=== PATIENT | female | born 1990 | race Caucasian/White ===

== ENCOUNTER 2017-03-16 05:32 | Day surgery (SDC) | payer BC ==
[2017-03-16] MEDS ORDERED: LR 1,000 ML IV ONE (05:55)
[2017-03-16] MEDS ORDERED: LIDOCAINE 1% 2 ML INJ ID PRN (05:55)
[2017-03-16] MEDS ORDERED: LIDOCAINE 1% 2 ML INJ ONE (06:01)
--- NOTE | 2017-03-16 06:42 | PDGENHP ---
History and Physical - Chief Complaint RIGHT HIP PAIN - History of Present Illness 1. ~~~Bilateral~Borderline Hip Dyplasia (predominanatly anterior) with~ resultant labral tear, Right side more symptomatic 2. ~~S/P Right femoral and tibial derotational osteotomies (Oct, 2015) with HWR 3. ~~Bilateral~Femoroacetabular impingement (GABBI) Cam type 4. ~~Right~Greater Trochanteric Bursitis 5. Mild hyperlaxity HISTORY OF PRESENT ILLNESS: Sergeyis a 26 y.o.~~~active female~who I have had the pleasure to consult on today.~I have enjoyed meeting her. She~lives in [place], [place]. 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 ~She~is single; she~has no~children. ~Sergeywas an athlete and she was competitetive in [employer] and cycling but she is not active now. Brigette's bilateral~hip pain started in 2010 on the right and 4 months ago on the left, with no~recalled trauma or injury, and with no~previous complaints. ~Sergeyhas~a known history of hip dysplasia. She has had derotational osteotomy of right femur by Dr. Varela followed by tibial osteotomy by Dr. Garcia in Oct, 2015 in [place]. She did not get any pain relief from the surgeries. Presentation today is of~anterior, lateral, groin bilateral~hip pain (R>L). ~ The hip does~wake her~at night and does~click and catch on her. Sitting can be uncomfortable~for her. Sergeydoes~report suffering from lower back pain episodes. Sergeyhas~participated in physical therapy and has~tried other conservative measures including hip injections. She has had US guided right hip cortisone injection and GT injection on 12/01/2016 and intra articular injection did not give her any pain relief. ~She~has not~received sufficient symptomatic improvement. Sergeyhas not~utilized medication for pain management, including NSAID and OTC acetaminophen. Sergeyunderstands that she~has a hip and pelvis problem which should be researched and wishes to get a better understanding of her~hip status, followed by an establishment of a treatment strategy, hoping she~would be able to get back to her~well being active life. History: Past medical history: ~ Hyperthyroidism Relevant familial history: None which is relevant Past surgical history: No. Surgery Anesthesia Year Outcome 1 Vocal cord surgery GA 2012 Not good 2 Wrist surgery GA 2015 Good 3 DFO GA 2016 Not Good Sergeydenies problematic issues with general anesthesia in the past. I have reviewed, verified and agree with the past medical, surgical, family and social history. Current Medications:~has a current medication list which includes the following prescription(s): methimazole, multivitamin with iron, and freestyle lite. ALLERGIES:~is allergic to ciprofloxacin. Objective: Physical Examination: Sergeyis 5~feet 6~inches tall and weighs~130~Lbs. Sergeyis AAO x3; she ~is well-nourished, in NAD. Skin is warm and dry. ~Breathing is non-labored. ~ CV with RRR by pulse. Abdomen is soft, NTND. Currently, she~walks with a normal~gait. Trendelenburg sign is negative~and proprioception~is normal, both~sides. She~presents~with moderate~signs of joint laxity.~Beightons Score: 5 She~is fit looking. ~~ Lower spine examination is negative~for sciatic or femoral nerve irritation with negative~SLR &~femoral stretch tests. Range of motion of the spine is normal~for flexion, extension, and rotations, with no~associated pain. Strength, Sensation and pulses are normal - bilaterally Ankles and knees exams are normal~and no~mal-alignment is evident. She~has~right~1.5~cm short leg length discrepancy. Thigh circumference is asymmetric~with low~muscle atrophy~on right~side. Surgical~scars on the thight and the leg on the right. Hip ROM (degrees): FL ER At 90~hip FL IR At 90~hip FL AB AD EX IR Neutral hip ER Neutral hip R 115 ~~~~~w pain 50 35~pain 40 10 10 45 20 L 115 45 40 45 5 10 50 25 Specific hip and pelvis tests: Quadrant LAURA Roll Add. Longus R +++ +++ Negative Negative L +++ +++ Negative Negative Glut. Med ITB Pos. Imp R Negative 4+/5 strength Negative 4+/5 strength Negative L Negative 5/5 strength Negative 5/5 strength Negative Squeeze test measured normal Bony Symphysis pubis is pain free~to touch while concentric activity of the rectus abdominis, does not~produce pain at its insertion. Ilio Psos specific tests are positive for pain during cycling for the right hip~ and remarkable for painful snap~(RIGHT SIDE) HF is pain free with good strength both hips. Anterior capsule tenderness BILATERAL Greater trochanteric burse is painful~on the right hip. Piriformis tests: FAIR is negative, with no~local signs of neuritis related to sciatic nerve. SIJs examination is normal~with normal~LAURA in relation and local tenderness. Hamstrings tests are negative~functional contraction and negative~tendinopathy both hips. On a daily basis, the following percentages reflect Brigette's overall total pain: Right Deep hip: 50% GT: 50% Left Deep hip: 100% Imaging: Radiology studies which I~have personally reviewed, analyzed and measured are below: XR: AP of the hip and pelvis: Performed in a satisfactory~technique Coccyx to pubic symphysis distance 0.35~cm. 0 degree upright 12/01/16 [place]~Lines are preserved. No~Pathological signs are seen in the Symphysis Pubis. No~Pathological signs are seen at the Ischial~tuberosity. ~ Specific measurements show: NSA~ LCE Sourcil~Angle Sharp's angle Lat. Cam Lat. Pincer C.Over~sign Head~Coverage % ATDmm R N 28 (25) 6 43 - - - N N L N 27 (26) 8 42 - - - N N Parenthesis numbers are for LCE of [place]. Pos. wall sign ISS NAD ~~Dysplasia Comments R Negative Negative 25~mm ++ L Negative Negative 24~mm ++ Sclerosis Sup. Lat. OA Cysts Joint Space-WBZ Joint Space-Medial R + Negative Negative 6.4~mm 4.4~mm L + Negative Negative 6.7~mm 4.6~mm X Table lateral: Anterior cam lesion (small)~is seen~on both hips. Alpha Angle: ~ Right 54~dergrees Left 56~degrees Right MRI~shows: Cartilage intact, mildly hypertrophic labrum (8.5mm) and cartilage, with GT bursitis (possibly artifact from nail/suture leftovers). CT (Before the DFO) Femoral antetorsion on the right 35 degrees and 30 degrees on the left. Lateral tibial torsion 41 degrees on the right and 37 degrees on the left. [place] acetabular version 32 degrees on the right and 28 on the left. 3D shows anterior cam lesion 2-4 o'clock. Impression and plan:Carmelita Rinconis a 26 y.o.~active female~suffering from symptomatic bilateral~hip pain due to Borderline Hip Dyplasia (lionel anteriorly) with~resultant labral tear, and ~Bilateral~Femoroacetabular impingement (GABBI) Cam type causing significant disability to her~and altering~her~sport and life activities. On the right, she has also have Greater Trochanteric Bursitis and she is S/P Right femoral and tibial derotational osteotomies (Oct, 2015) and HWR. Physical examination, imaging, and her~story correspond with the diagnosis mentioned above. I explained that hip dysplasia is a condition wherein the hip joint has excessive play~and instability due to a variety of factors, including the depth and adequacy of the socket, the orientation of the femur bone, and ligament laxity around the hip joint. Dysplasia ranges in severity from borderline to lionel, with treatment options being specific to the specific nature of the problem. Left untreated, the instability in the hip joint can cause progressive tearing of the labrum and deterioration of the surface cartilage, ultimately resulting in progressive osteoarthritis of the hip. I explained that femoroacetabular impingement (GABBI - Cam type) arises due to a bony or soft tissue conflict between the femur (ball) and acetabulum (socket) caused by an abnormality in the shape of the femoral head and neck. Over time, repetitive impingement can result in damage to the labrum and adjacent surface cartilage within the socket, ultimately giving rise to progressive osteoarthritis of the hip. I explained that although a labral tear can be a source of pain, it is rarely the root of the problem and typically occurs secondary to an underlying abnormality in the shape and mechanics of the hip joint. I reviewed conservative treatment options for Dysplasia and GABBI including activity modification to avoid positions of impingement or instability, physical therapy, non-steroidal anti-inflammatory medications, and various injections (corticosteroid and PRP) aimed at reducing inflammation in the hip joint or/and preventing dynamic instability and impingement. PRP injections may promote healing and reduce symptoms in certain cases but it will not repair chronically damaged tissue. Although these measures may help to buy time~and reduce current level of symptoms, they are not a definitive solution to the problem given the underlying abnormality in the shape of the hip joint. Patients who have failed conservative management and continue to experience symptoms are candidates for definitive surgical treatment, which may consist of hip arthroscopy alone or in combination with more invasive bony realignment procedures of the hip socket and/or femur called periacetabular osteotomy (LAKIA) or derotational femoral osteotomy (DFO) but she already has had DFO on the right and she continues to be symptomatic. Hip arthroscopy typically includes treating the labrum with either repair or reconstruction of the torn labrum; as well as addressing the underlying abnormalities by restoring the normal shape to the hip joint. If the cartilage is damaged a Microfracture surgical procedure may also be necessary to help stimulate the growth of fibrocartilage. If a patient requires a labral reconstruction or a Microfracture, the initial rehabilitation from the surgery may take longer, but the correction results are typically favorable. I reviewed the technical aspects of hip arthroscopy including risks, benefits, and expected course of recovery. Brigette~understands that hip arthroscopy is a minimally invasive outpatient procedure carried out through small incisions on the outer aspect of the hip joint. During surgery, the labral tear will be identified and either repaired or reconstructed~using bone anchors and suture material. Additionally, any excessive bone will be removed with a high-speed kael to reshape the hip joint and restore normal anatomy. Risks include infection, bleeding, injury to nearby nerves or vessels, stiffness, persistent pain, instability, venous thromboembolic disease, and traction related complications including temporary foot numbness. Rarely, revision surgery may be required to address these problems. Overall recovery takes approximately 4~~ 8~months depending on the extent of damage and degree of repair. In the event that the labral tissue quality is inadequate for successful repair and healing, Brigette~understands that a labral reconstruction will be performed. This procedure entails placing a cadaver tissue graft within the hip joint and stabilizing it with bone anchors to build a new labrum. The overall recovery time for labral reconstruction is similar to that of labral repair, although the surgical procedure takes longer to perform. I reviewed the technical aspects of periacetabular osteotomy (LAKIA) including risks, benefits, and expected course of recovery. Brigette~understands that LAKIA is an inpatient procedure carried out through two medium sized incisions on the front and back of the hip joint. The hip socket is cut, realigned, and stabilized with 2 ~3 internal screws. Risks include infection, bleeding, injury to nearby nerves or vessels, stiffness, persistent pain, instability, failure of bony healing, implant related complications, and venous thromboembolic disease. Rarely, revision surgery may be required to address these problems. Risks, potential complications, side effects and recovery from surgical procedure were discussed in length. We explained how this surgery is an open procedure, and though patients tend to do well in the long-term, it involves significant pain in the first 2-4 weeks post-op and a rather lengthy rehab.~Overall recovery takes approximately 6 ~12~months depending on the extent of damage and degree of repair. Brigette~understands that she~will undergo hip arthroscopy 1 week prior to the LAKIA to address damage inside the hip joint. Brigette~understands that hip arthroscopy and LAKIA are two separate procedures that are best performed one week apart, with the arthroscopy commencing first to "tighten up" any pathology evident in the hip joint (labral repair, etc.) and the LAKIA open procedure occurring 7-10 days later to realign the acetabulum. I reviewed all of her previous imaging thoroughly and after adding my physical exam findings and her history, my suggestions/concuslion for next recommended steps are: 1.~Minimally invasive option~- Hip Arthroscopy to address Labral tear, cam impingement, possible cartilage damage, GT bursitis/ITB lengthening. ~~~~Pros - Minimally invasive, very fast recovery. ~~~Cons - Will not correct viky-lateral under-coverage of femoral head and she may need still LAKIA in the future (we usually know in 6-12 month). ~~~~Reason to bring this option up is that Brigette never had a hip scope to address intra articular sources of pain and she is BL Dysplasia by pure radiographic parameters (which don;t take into account well her anterior under- coverage) ~- ~~~~As such, there is a (small) chance this would work. 2. The above combined with LAKIA. ~~~~~Pros- one rehab time frame, although bigger scope of work, this strategy address all of her pathologies. ~~~Cons - Larger scope of surgery, tougher (not much longer) recovery. Sergeywill review the info presented. Sergeyis going to think about her~options and get back to us. Sergeyis happy with this plan. I wish~Sergeyall the best, ~~ Santiago Hernandez MD History Information - Allergies/Home Medication List Allergies/Adverse Reactions: ciprofloxacin [From Cipro] Allergy (Intermediate, Verified 03/13/17 16:49) Itching Home Medications: Cymbalta 25 HS 03/13/17 [Last Taken Unknown] Magnesium HS 03/13/17 [Last Taken Unknown] Probiotic TID 03/13/17 [Last Taken Unknown] Tapazole 7.5 HS 03/13/17 [Last Taken Unknown] Vitamin A/C/D3/Cod Liver Oil TID 03/13/17 [Last Taken Unknown] Yeast Extract TID 03/13/17 [Last Taken Unknown] I have personally reviewed and updated: medical history - Social History Smoking Status: Never smoked Review of Systems Review of Systems: Physical Exam Physical Exam: Temp Pulse Resp BP Pulse Ox 36.6 C 68 16 109/66 97 03/16/17 05:58 03/16/17 05:58 03/16/17 05:58 03/16/17 05:58 03/16/17 05:58
[2017-03-16] MEDS ORDERED: ceFAZolin 2 GM/DEXTROSE 100 ML IV ONE (06:44)
[2017-03-16] MEDS ORDERED: PREGABALIN 150 MG CAP PO ONE (06:44)
[2017-03-16] MEDS ORDERED: ACETAMINOPHEN 500 MG TAB PO ONE (06:44)
[2017-03-16] MEDS ORDERED: MIDAZOLAM 2 MG/2 ML VIAL IVP ONE (07:29)
[2017-03-16] MEDS ORDERED: SCOPOLAMINE HYDROBROMIDE 1 MG/3 DAYS PATCH TD ONE ×2 (07:29→11:45)
--- NOTE | 2017-03-16 07:32 | PDANEPAE ---
ANE History of Present Illness Patient presents for R hip scope ANE Past Medical History - Cardiovascular History Hx Hypertension: No Hx Arrhythmias: No Hx Chest Pain: No Hx Coronary Artery / Peripheral Vascular Disease: No Hx CHF / Valvular Disease: No Hx Palpitations: Yes Cardiovascular History Comment: occasional palpitations due to Graves disease - Pulmonary History Hx COPD: No Hx Asthma/Reactive Airway Disease: No Hx Recent Upper Respiratory Infection: No Hx Oxygen in Use at Home: No Hx Sleep Apnea: No Sleep Apnea Screening Result - Last Documented: Negative - Neurologic History Hx Cerebrovascular Accident: No Hx Seizures: No Hx Dementia: No - Endocrine History Hx Diabetes: No - Renal History Hx Renal Disorders: No - Liver History Hx Hepatic Disorders: No - Neurological & Psychiatric Hx Hx Neurological and Psychiatric Disorders: No - Cancer History Hx Cancer: No - Congenital Disorder History Hx Congenital Disorders: No - GI History Hx Gastrointestinal Disorders: No - Chronic Pain History Chronic Pain: No - Surgical History Prior Surgeries: right leg osteotomy 2016. hardware removal 2017 ANE Review of Systems Review of Systems: - Exercise capacity Exercise capacity: >=4 METS METS (RN): 4 METS ANE Patient History - Allergies Allergies/Adverse Reactions: ciprofloxacin [From Cipro] Allergy (Intermediate, Verified 03/13/17 16:49) Itching - Home Medications Home medications: home medication list seen and reviewed Home Medications: Cymbalta 25 HS 03/13/17 [Last Taken Unknown] Magnesium HS 03/13/17 [Last Taken Unknown] Probiotic TID 03/13/17 [Last Taken Unknown] Tapazole 7.5 HS 03/13/17 [Last Taken Unknown] Vitamin A/C/D3/Cod Liver Oil TID 03/13/17 [Last Taken Unknown] Yeast Extract TID 03/13/17 [Last Taken Unknown] - NPO status NPO Status: no food or drink >8 hours NPO Since - Liquids (Date): 03/15/17 NPO Since - Liquids (Time): 23:55 NPO Since - Solids (Date): 03/15/17 NPO Since - Solids (Time): 18:00 - Anes Hx Anes Hx: no prior problems - Smoking Hx Smoking Status: Never smoked - Family Anes Hx Family Hx Anesthesia Complications: none ANE Labs/Vital Signs - Vital Signs Blood Pressure: 109/66 Heart Rate: 68 Respiratory Rate: 16 O2 Sat (%): 97 Height: 165.1 cm Weight: 54.431 kg ANE Physical Exam - Airway Neck exam: FROM Mallampati Score: Class 1 Mouth exam: normal dental/mouth exam - Pulmonary Pulmonary: no respiratory distress - Cardiovascular Cardiovascular: regular rate and rhythym - ASA Status ASA Status: II ANE Anesthesia Plan Anesthesia Plan: general endotracheal anesthesia (RBA discussed, patient agrees to proceed)
[2017-03-16] MEDS ORDERED: fentaNYL 100 MCG/2 ML INJ ONE ×2 (11:04→15:20)
[2017-03-16] MEDS ORDERED: ROCURONIUM 50 MG/5 ML VIAL ONE (11:04)
[2017-03-16] MEDS ORDERED: PROPOFOL/EMULSION 500 MG/50 ML BOTTLE IV ONE (11:04)
[2017-03-16] MEDS ORDERED: LIDOCAINE 2% 5 ML SDV ONE (11:04)
[2017-03-16] MEDS ORDERED: PROPOFOL 200 MG/20 ML VIAL ONE (11:04)
[2017-03-16] MEDS ORDERED: BUPIVACAINE 0.25% 30 ML SDV ONE (11:32)
[2017-03-16] MEDS ORDERED: EPINEPHrine 30 MG/30 ML MDV ONE (11:33)
[2017-03-16] MEDS ORDERED: DEXAMETHASONE 4 MG/ML VIAL ONE (11:39)
[2017-03-16] MEDS ORDERED: MIDAZOLAM 2 MG/2 ML VIAL ONE (11:45)
[2017-03-16] MEDS ORDERED: PHENYLEPHRINE HCL 100 MCG/ML SYR ONE (12:16)
[2017-03-16] MEDS ORDERED: HYDROmorphONE/DILAUDID 2 MG/ML INJ ONE (13:16)
[2017-03-16] MEDS ORDERED: KETOROLAC 30 MG/1 ML SDV ONE (14:06)
[2017-03-16] MEDS ORDERED: SUGAMMADEX SODIUM 200 MG/2 ML VIAL IVP ONE (14:06)
[2017-03-16] MEDS ORDERED: ONDANSETRON 4 MG/2 ML VIAL ONE (14:06)
[2017-03-16] MEDS ORDERED: ONDANSETRON 4 MG/2 ML VIAL IVP PRN (14:13)
[2017-03-16] MEDS ORDERED: NALOXONE HCL 0.4 MG/ML INJ IVP PRN (14:13)
[2017-03-16] MEDS ORDERED: LR 500 ML IV PRN (14:13)
[2017-03-16] MEDS ORDERED: PROMETHAZINE HCL 25 MG/ML INJ IVP PRN (14:13)
[2017-03-16] MEDS ORDERED: HYDROCODONE/APAP 5/325 TAB PO PRN (14:13)
[2017-03-16] MEDS: fentaNYL 100 MCG/2 ML INJ IVP PRN ×2 (15:22→15:28)
[2017-03-16] MEDS ORDERED: HYDROmorphONE/DILAUDID 1 MG/ML INJ ONE (15:34)
[2017-03-16] MEDS: HYDROmorphONE/DILAUDID 1 MG/ML INJ IVP PRN ×2 (15:36→16:07)
--- NOTE | 2017-03-16 16:04 | POSTANESTH ---
Post Anesthetic Evaluation Cardiovascular Status: Normal, Stable Respiratory Status: Normal, Stable Level of Consciousness/Mental Status: Can Participate in Eval Pain Control: Inadeq, Add Tx Required Nausea/Vomiting Control: Adequate, Prn Tx Ordered Complications Possibly Related to Anesthesia: None Noted (Treating pain with fentanyl, Dilaudid and percocet)
[2017-03-16] MEDS ORDERED: OXYCODONE/APAP 5/325 TAB ONE ×2 (16:10→16:47)
[2017-03-16] MEDS: OXYCODONE/APAP 5/325 TAB PO PRN ×2 (16:11→16:48)
[2017-03-16 17:07] VITALS: PULSE 80; RESP 16; TEMP 98.6
[2017-03-16 17:39] VITALS: BP 110/62; O2SAT 95
== END 2017-03-16 17:47 | disposition home or self-care (01) ==
LOC: FSGY 05:32
PROVIDERS: ATTEND Orthopaedic Surgery Sports Medicine
PROC: 0SQ94ZZ Repair Right Hip Joint, Percutaneous Endoscopic Approach (ICD-10-PCS; principal; 2017-03-16 10:30)
DX: M25.851 Other specified joint disorders, right hip (principal)
CPT/HCPCS: 29914; 76001; C1769; C1713; J0171; J0690; J1100; J1170; J1885; J2250; J2370; J2405; J2704; J3010

== ENCOUNTER 2017-12-18 05:56 | Day surgery (SDC) | payer OTHER ==
--- NOTE | 2017-12-17 23:16 | PDGENHP ---
History and Physical - Chief Complaint Right Hip Pain - History of Present Illness 1. ~~~Bilateral~Borderline Hip Dyplasia (predominanatly anterior) with~ resultant labral tear, Right side more symptomatic 2. ~~S/P Right femoral and tibial derotational osteotomies (Oct, 2015) with HWR 3. ~~Bilateral~Femoroacetabular impingement (GABBI) Cam type 4. ~~Right~Greater Trochanteric Bursitis 5. Mild hyperlaxity HISTORY OF PRESENT ILLNESS: Sergeyis a 27 y.o.~~~active female~who I have had the pleasure to consult on today. I have enjoyed meeting her. She~lives in [place], [place]. ~Sergey works as a video engineer. ~She~is single; she~has no~children. ~Sergeywas an athlete and she was competitetive in [email or web address] and cycling but she is not active now. Brigette's bilateral~hip pain started in 2010 on the right and 4 months ago on the left, with no~recalled trauma or injury, and with no~previous complaints. Sergeyhas~a known history of hip dysplasia. She has had derotational osteotomy of right femur by Dr. Varela followed by tibial osteotomy by Dr. Garcia in Oct, 2015 in [place]. She did not get any pain relief from the surgeries. Presentation today is of anterior, lateral, groin bilateral~hip pain (R>L). ~ The hip does~wake her~at night and does~click and catch on her. Sitting can be uncomfortable~for her. Sergeydoes~report suffering from lower back pain episodes. Sergeyhas~participated in physical therapy and has~tried other conservative measures including hip injections. She has had US guided right hip cortisone injection and GT injection on 12/01/2016 and intra articular injection did not give her any pain relief. ~She~has not~received sufficient symptomatic improvement. Sergeyhas not~utilized medication for pain management, including NSAID and OTC acetaminophen. Sergeyunderstands that she~has a hip and pelvis problem which should be researched and wishes to get a better understanding of her~hip status, followed by an establishment of a treatment strategy, hoping she~would be able to get back to her~well being active life. History: Past medical history: ~ Hyperthyroidism Relevant familial history: None which is relevant Past surgical history: No. Surgery Anesthesia Year Outcome 1 Vocal cord surgery GA 2012 Not good 2 Wrist surgery GA 2015 Good 3 DFO GA 2016 Not Good Sergeydenies problematic issues with general anesthesia in the past. I have reviewed, verified and agree with the past medical, surgical, family and social history. Current Medications:~has a current medication list which includes the following prescription(s): methimazole, multivitamin with iron, and freestyle lite. ALLERGIES:~is allergic to ciprofloxacin. Objective: Physical Examination: Sergeyis 5~feet 6~inches tall and weighs 130~Lbs. Sergeyis AAO x3; she ~is well-nourished, in NAD. Skin is warm and dry. ~Breathing is non-labored. ~ CV with RRR by pulse. Abdomen is soft, NTND. Currently, she~walks with a normal~gait. Trendelenburg sign is negative~and proprioception is normal, both~sides. She~presents with moderate~signs of joint laxity. Beightons Score: 5 She~is fit looking. ~~ Lower spine examination is negative~for sciatic or femoral nerve irritation with negative~SLR &~femoral stretch tests. Range of motion of the spine is normal~for flexion, extension, and rotations, with no~associated pain. Strength, Sensation and pulses are normal - bilaterally Ankles and knees exams are normal~and no~mal-alignment is evident. She~has~right~1.5~cm short leg length discrepancy. Thigh circumference is asymmetric~with low~muscle atrophy~on right~side. Surgical~scars on the thight and the leg on the right. Hip ROM (degrees): FL ER At 90~hip FL IR At 90~hip FL AB AD EX IR Neutral hip ER Neutral hip R 115 ~~~~~w pain 50 35~pain 40 10 10 45 20 L 115 45 40 45 5 10 50 25 Specific hip and pelvis tests: Quadrant LAURA Roll Add. Longus R +++ +++ Negative Negative L +++ +++ Negative Negative Glut. Med ITB Pos. Imp R Negative 4+/5 strength Negative 4+/5 strength Negative L Negative 5/5 strength Negative 5/5 strength Negative Squeeze test measured normal Bony Symphysis pubis is pain free~to touch while concentric activity of the rectus abdominis, does not~produce pain at its insertion. Ilio Psos specific tests are positive for pain during cycling for the right hip~ and remarkable for painful snap~(RIGHT SIDE) HF is pain free with good strength both hips. Anterior capsule tenderness BILATERAL Greater trochanteric burse is painful~on the right hip. Piriformis tests: FAIR is negative, with no~local signs of neuritis related to sciatic nerve. SIJs examination is normal~with normal~LAURA in relation and local tenderness. Hamstrings tests are negative~functional contraction and negative~tendinopathy both hips. On a daily basis, the following percentages reflect Brigette's overall total pain: Right Deep hip: 50% GT: 50% Left Deep hip: 100% Imaging: Radiology studies which I have personally reviewed, analyzed and measured are below: XR: AP of the hip and pelvis: Performed in a satisfactory~technique Coccyx to pubic symphysis distance 0.35~cm. 0 degree upright 12/01/16 [place] Lines are preserved. No~Pathological signs are seen in the Symphysis Pubis. No~Pathological signs are seen at the Ischial tuberosity. ~ Specific measurements show: NSA~ LCE Sourcil~Angle Sharp's angle Lat. Cam Lat. Pincer C.Over~sign Head~Coverage % ATDmm R N 28 (25) 6 43 - - - N N L N 27 (26) 8 42 - - - N N Parenthesis numbers are for LCE of [place]. Pos. wall sign ISS NAD ~~Dysplasia Comments R Negative Negative 25~mm ++ L Negative Negative 24~mm ++ Sclerosis Sup. Lat. OA Cysts Joint Space-WBZ Joint Space-Medial R + Negative Negative 6.4~mm 4.4~mm L + Negative Negative 6.7~mm 4.6~mm X Table lateral: Anterior cam lesion (small)~is seen~on both hips. Alpha Angle: ~ Right 54~dergrees Left 56~degrees Right MRI~shows: Cartilage intact, mildly hypertrophic labrum (8.5mm) and cartilage, with GT bursitis (possibly artifact from nail/suture leftovers). CT (Before the DFO) Femoral antetorsion on the right 35 degrees and 30 degrees on the left. Lateral tibial torsion 41 degrees on the right and 37 degrees on the left. [place] acetabular version 32 degrees on the right and 28 on the left. 3D shows anterior cam lesion 2-4 o'clock. Impression and plan: Sergeyis a 27 y.o.~active female~suffering from symptomatic bilateral~hip pain due to Borderline Hip Dyplasia (lionel anteriorly) with~resultant labral tear, and ~Bilateral~Femoroacetabular impingement (GABBI) Cam type causing significant disability to her~and altering her~sport and life activities. On the right, she has also have Greater Trochanteric Bursitis and she is S/P Right femoral and tibial derotational osteotomies (Oct, 2015) and HWR. Physical examination, imaging, and her~story correspond with the diagnosis mentioned above. I explained that hip dysplasia is a condition wherein the hip joint has excessive play~and instability due to a variety of factors, including the depth and adequacy of the socket, the orientation of the femur bone, and ligament laxity around the hip joint. Dysplasia ranges in severity from borderline to lionel, with treatment options being specific to the specific nature of the problem. Left untreated, the instability in the hip joint can cause progressive tearing of the labrum and deterioration of the surface cartilage, ultimately resulting in progressive osteoarthritis of the hip. I explained that femoroacetabular impingement (GABBI - Cam type) arises due to a bony or soft tissue conflict between the femur (ball) and acetabulum (socket) caused by an abnormality in the shape of the femoral head and neck. Over time, repetitive impingement can result in damage to the labrum and adjacent surface cartilage within the socket, ultimately giving rise to progressive osteoarthritis of the hip. I explained that although a labral tear can be a source of pain, it is rarely the root of the problem and typically occurs secondary to an underlying abnormality in the shape and mechanics of the hip joint. I reviewed conservative treatment options for Dysplasia and GABBI including activity modification to avoid positions of impingement or instability, physical therapy, non-steroidal anti-inflammatory medications, and various injections (corticosteroid and PRP) aimed at reducing inflammation in the hip joint or/and preventing dynamic instability and impingement. PRP injections may promote healing and reduce symptoms in certain cases but it will not repair chronically damaged tissue. Although these measures may help to buy time~and reduce current level of symptoms, they are not a definitive solution to the problem given the underlying abnormality in the shape of the hip joint. Patients who have failed conservative management and continue to experience symptoms are candidates for definitive surgical treatment, which may consist of hip arthroscopy alone or in combination with more invasive bony realignment procedures of the hip socket and/or femur called periacetabular osteotomy (LAKIA) or derotational femoral osteotomy (DFO) but she already has had DFO on the right and she continues to be symptomatic. Hip arthroscopy typically includes treating the labrum with either repair or reconstruction of the torn labrum; as well as addressing the underlying abnormalities by restoring the normal shape to the hip joint. If the cartilage is damaged a Microfracture surgical procedure may also be necessary to help stimulate the growth of fibrocartilage. If a patient requires a labral reconstruction or a Microfracture, the initial rehabilitation from the surgery may take longer, but the shelter results are typically favorable. I reviewed the technical aspects of hip arthroscopy including risks, benefits, and expected course of recovery. Brigette~understands that hip arthroscopy is a minimally invasive outpatient procedure carried out through small incisions on the outer aspect of the hip joint. During surgery, the labral tear will be identified and either repaired or reconstructed~using bone anchors and suture material. Additionally, any excessive bone will be removed with a high-speed kael to reshape the hip joint and restore normal anatomy. Risks include infection, bleeding, injury to nearby nerves or vessels, stiffness, persistent pain, instability, venous thromboembolic disease, and traction related complications including temporary foot numbness. Rarely, revision surgery may be required to address these problems. Overall recovery takes approximately 4~ 8~months depending on the extent of damage and degree of repair. In the event that the labral tissue quality is inadequate for successful repair and healing, Brigette~understands that a labral reconstruction will be performed. This procedure entails placing a cadaver tissue graft within the hip joint and stabilizing it with bone anchors to build a new labrum. The overall recovery time for labral reconstruction is similar to that of labral repair, although the surgical procedure takes longer to perform. I reviewed the technical aspects of periacetabular osteotomy (LAKIA) including risks, benefits, and expected course of recovery. Brigette~understands that LAKIA is an inpatient procedure carried out through two medium sized incisions on the front and back of the hip joint. The hip socket is cut, realigned, and stabilized with 2 3 internal screws. Risks include infection, bleeding, injury to nearby nerves or vessels, stiffness, persistent pain, instability, failure of bony healing, implant related complications, and venous thromboembolic disease. Rarely, revision surgery may be required to address these problems. Risks, potential complications, side effects and recovery from surgical procedure were discussed in length. We explained how this surgery is an open procedure, and though patients tend to do well in the long-term, it involves significant pain in the first 2-4 weeks post-op and a rather lengthy rehab.~Overall recovery takes approximately 6 12~months depending on the extent of damage and degree of repair. Brigette~understands that she~will undergo hip arthroscopy 1 week prior to the LAKIA to address damage inside the hip joint. Brigette~understands that hip arthroscopy and LAKIA are two separate procedures that are best performed one week apart, with the arthroscopy commencing first to "tighten up" any pathology evident in the hip joint (labral repair, etc.) and the LAKIA open procedure occurring 7-10 days later to realign the acetabulum. I reviewed all of her previous imaging thoroughly and after adding my physical exam findings and her history, my suggestions/concuslion for next recommended steps are: 1.~Minimally invasive option~- Hip Arthroscopy to address Labral tear, cam impingement, possible cartilage damage, GT bursitis/ITB lengthening. ~~~~Pros - Minimally invasive, very fast recovery. ~~~Cons - Will not correct viky-lateral under-coverage of femoral head and she may need still LAKIA in the future (we usually know in 6-12 month). ~~~~Reason to bring this option up is that Brigette never had a hip scope to address intra articular sources of pain and she is BL Dysplasia by pure radiographic parameters (which don;t take into account well her anterior under- coverage) ~- ~~~~As such, there is a (small) chance this would work. 2. The above combined with LAKIA. ~~~~~Pros- one rehab time frame, although bigger scope of work, this strategy address all of her pathologies. ~~~Cons - Larger scope of surgery, tougher (not much longer) recovery. Brigette~will review the info presented. Sergeyis going to think about her~options and get back to us. Sergeyis happy with this plan. I wish~Sergeyall the best, ~~ Santiago Hernandez MD History Information - Allergies/Home Medication List Allergies/Adverse Reactions: ciprofloxacin [From Cipro] Allergy (Verified 12/09/17 18:20) itchy hands and feet Home Medications: Herbals/Supplements -Info Only 12/09/17 [Last Taken Unknown] MIRTAZAPINE 12/09/17 [Last Taken Unknown] Methimazole 12/09/17 [Last Taken Unknown] I have personally reviewed and updated: medical history - Social History Smoking Status: Never smoked Review of Systems Review of Systems: Physical Exam Physical Exam:
[2017-12-18] MEDS ORDERED: ceFAZolin 2 GM/DEXTROSE 100 ML IV ONE (06:11)
[2017-12-18] MEDS ORDERED: ACETAMINOPHEN 500 MG TAB PO ONE (06:11)
[2017-12-18] MEDS ORDERED: PREGABALIN 150 MG CAP PO ONE (06:11)
[2017-12-18] MEDS ORDERED: LR 1,000 ML IV ONE (06:12)
[2017-12-18] MEDS ORDERED: LIDOCAINE 1% 2 ML INJ ID PRN (06:12)
[2017-12-18] MEDS ORDERED: LIDOCAINE 1% 300 MG/30 ML SDV ONE (06:57)
[2017-12-18] MEDS ORDERED: EPINEPHrine 1 MG/ML INJ ONE (06:57)
[2017-12-18] MEDS ORDERED: BUPIVACAINE 0.25% 30 ML SDV ONE (06:57)
[2017-12-18] MEDS ORDERED: MIDAZOLAM 2 MG/2 ML VIAL IVP ONE (07:08)
--- NOTE | 2017-12-18 07:08 | PDANEPAE ---
ANE History of Present Illness 27 yo for hw removal hip ANE Past Medical History - Cardiovascular History Hx Hypertension: No Hx Arrhythmias: No Hx Chest Pain: No Hx Coronary Artery / Peripheral Vascular Disease: No Hx CHF / Valvular Disease: No Hx Palpitations: No Cardiovascular History Comment: occasional palpitations due to Graves disease - Pulmonary History Hx COPD: No Hx Asthma/Reactive Airway Disease: No Hx Recent Upper Respiratory Infection: No Hx Oxygen in Use at Home: No Hx Sleep Apnea: No Sleep Apnea Screening Result - Last Documented: Negative - Neurologic History Hx Cerebrovascular Accident: No Hx Seizures: No Hx Dementia: No - Endocrine History Hx Diabetes: No Endocrine History Comment: Graves disease - Renal History Hx Renal Disorders: No - Liver History Hx Hepatic Disorders: No - Neurological & Psychiatric Hx Hx Neurological and Psychiatric Disorders: No - Cancer History Hx Cancer: No - Congenital Disorder History Hx Congenital Disorders: No - GI History Hx Gastrointestinal Disorders: Yes Gastrointestinal History Comment: reflux - Other Health History Other Health History: none - Chronic Pain History Chronic Pain: Yes (right hip pain) - Surgical History Prior Surgeries: Right LAKIA 2017. 03/16/17 right hip scope and labral repair with Milka-Jerry. hardware removal 2017. right femoral osteotomy 2014. right tibial osteotomy 2014 ANE Review of Systems Review of Systems: - Exercise capacity METS (RN): 5 METS ANE Patient History - Allergies Allergies/Adverse Reactions: ciprofloxacin [From Cipro] Allergy (Intermediate, Verified 12/18/17 06:50) itchy hands and feet dermabond Allergy (Mild, Uncoded 12/18/17 06:57) Redness,itching - Home Medications Home Medications: Herbals/Supplements -Info Only 12/09/17 [Last Taken Unknown] MIRTAZAPINE 12/09/17 [Last Taken 12/16/17 19:00] Methimazole 12/09/17 [Last Taken 12/16/17 19:00] - NPO status NPO Since - Liquids (Date): 12/17/17 NPO Since - Liquids (Time): 22:00 NPO Since - Solids (Date): 12/17/17 NPO Since - Solids (Time): 16:00 - Anes Hx Anes Hx: no prior problems - Smoking Hx Smoking Status: Never smoked - Family Anes Hx Family Hx Anesthesia Complications: none ANE Labs/Vital Signs - Vital Signs Blood Pressure: 109/72 Heart Rate: 66 Respiratory Rate: 14 O2 Sat (%): 97 Height: 5 ft 6 in Weight: 56.699 kg ANE Physical Exam - Airway Neck exam: FROM Mallampati Score: Class 2 Mouth exam: normal dental/mouth exam - Pulmonary Pulmonary: no respiratory distress - Cardiovascular Cardiovascular: regular rate and rhythym - ASA Status ASA Status: II ANE Anesthesia Plan Anesthesia Plan: GA w LMA
[2017-12-18] MEDS ORDERED: fentaNYL 100 MCG/2 ML INJ ONE ×3 (07:13→09:49)
[2017-12-18] MEDS ORDERED: PROPOFOL/EMULSION 500 MG/50 ML BOTTLE IV ONE (07:13)
[2017-12-18] MEDS ORDERED: ONDANSETRON 4 MG/2 ML VIAL ONE (08:23)
[2017-12-18] MEDS ORDERED: KETOROLAC 30 MG/1 ML SDV ONE ×2 (08:23)
[2017-12-18] MEDS ORDERED: PROPOFOL 200 MG/20 ML VIAL ONE (08:57)
[2017-12-18] MEDS ORDERED: oxyCODONE IR 5 MG TAB PO PRN (09:15)
[2017-12-18] MEDS ORDERED: NALOXONE HCL 0.4 MG/ML INJ IVP PRN (09:15)
[2017-12-18] MEDS ORDERED: HYDROmorphONE/DILAUDID 1 MG/ML INJ IVP PRN (09:15)
[2017-12-18] MEDS ORDERED: fentaNYL 100 MCG/2 ML INJ IVP PRN (09:15)
[2017-12-18] MEDS ORDERED: ONDANSETRON 4 MG/2 ML VIAL IVP PRN (09:15)
[2017-12-18 11:19] VITALS: BP 113/69
--- NOTE | 2017-12-18 14:17 | POSTANESTH ---
Post Anesthetic Evaluation Cardiovascular Status: Normal, Stable Respiratory Status: Normal, Stable Level of Consciousness/Mental Status: Can Participate in Eval Pain Control: Adequate, Prn Tx Ordered Nausea/Vomiting Control: Adequate, Prn Tx Ordered Complications Possibly Related to Anesthesia: None Noted
== END 2017-12-18 11:25 | disposition home or self-care (01) ==
LOC: FSGY 05:56
PROVIDERS: ATTEND Orthopaedic Surgery Sports Medicine
PROC: BQ101ZZ Fluoroscopy of Right Hip using Low Osmolar Contrast (ICD-10-PCS; principal; 2017-12-18 07:15)
PROC: 0QB20ZZ Excision of Right Pelvic Bone, Open Approach (ICD-10-PCS; principal; 2017-12-18 07:15)
PROC: 0SPB04Z Removal of Internal Fixation Device from Left Hip Joint, Open Approach (ICD-10-PCS; principal; 2017-12-18 07:15)
DX: T84.84XA Pain due to internal orthopedic prosthetic devices, implants and grafts, initial encounter (principal); M25.851 Other specified joint disorders, right hip; E03.9 Hypothyroidism, unspecified
CPT/HCPCS: C1713; J0171; J0690; J1885; J2250; J2405; J2704; J3010